=== PATIENT | male | born 1965 | race Caucasian/White ===

== ENCOUNTER 2017-07-26 16:42 | Emergency (ER) | payer OTHER ==
[~2017-07-26] VITALS: Ht 182.9 cm; Wt 130.4 kg
[~2017-07-26 16:42] MED LIST: PERCOCET 5/31 TABLET PO
[2017-07-26] MEDS ORDERED: ULTRACET1 TABLET PO (18:39)
[2017-07-26 19:21] VITALS: BP 127/76
== END 2017-07-26 19:21 | disposition home or self-care (01) ==
LOC: EME 16:42
DX: S70.01XA Contusion of right hip, initial encounter (principal); M54.16 Radiculopathy, lumbar region; W01.0XXA Fall on same level from slipping, tripping and stumbling without subsequent striking against object, initial encounter; Y92.512 Supermarket, store or market as the place of occurrence of the external cause; Z88.6 Allergy status to analgesic agent
CPT/HCPCS: 72100; 73502; 99281; 99283; J8540